=== PATIENT | male | born 1960 | race Caucasian/White ===

== ENCOUNTER 2017-06-11 16:03 | Emergency (ER) | payer BC ==
[2017-06-11] MEDS ORDERED: Lidocaine Inj 1% 20 ML ONE (16:07)
[2017-06-11 16:25] VITALS: RESP 16; TEMP 97.6
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
[2017-06-11] MEDS ORDERED: Lidocaine 1% 10 MG/ML - 20 ML VIAL SUBCUT ONE (16:59)
== END 2017-06-11 16:50 | disposition home or self-care (01) ==
LOC: ER 16:03
DX: S81.812A Laceration without foreign body, left lower leg, initial encounter (principal); W22.8XXA Striking against or struck by other objects, initial encounter
CPT/HCPCS: 12001; 99282